=== PATIENT | female | born 1980 | race African-American/Black ===

== ENCOUNTER 2021-09-02 02:24 | Emergency (ER) | payer MEDICAID ==
[2021-09-02] MEDS ORDERED: Sodium Chloride 0.9% 1,000 ML IV SCH (02:30)
--- NOTE | 2021-09-02 02:35 | EDM.PDOC ---
ED HPI GENERAL MEDICAL PROBLEM - General Chief Complaint: Abdominal Pain Stated Complaint: puking, abdominal pain Time Seen by Provider: 09/02/21 02:25 Source of Information: Reports: Patient, EMS History Limitations: Reports: No Limitations - History of Present Illness INITIAL COMMENTS - FREE TEXT/NARRATIVE: Jaylene 10-year-old female from [place], [place] who presents to the ED via [facility] for evaluation of acute onset of severe abdominal pain, altered mental status, twitching, and vomiting. The patient was in her usual state of health until eating dinner tonight consisting of a pork product. She awoke about an hour prior to arrival with severe upper abdominal pain. EMS reported that she was altered but cannot really elaborate on how she was altered and that she was twitching intermittently. The patient was noted to be hypotensive and they established an IV and gave her a 750 cc bolus of normal saline and 8 of Zofran IV for nausea. She arrives here alert but slow to respond. She follows all commands. She has significant epigastric discomfort. abd pain Pain Score (Numeric/FACES): 6 - Related Data Allergies Allergy/AdvReac Type Severity Reaction Status Date / Time Penicillins Allergy Rash Verified 09/02/21 02:30 Home Meds: Home Meds NK [No Known Home Meds] 09/02/21 [History] ED ROS GENERAL - Review of Systems Review Of Systems: See Below Constitutional: Reports: Chills HEENT: Reports: No Symptoms Respiratory: Reports: No Symptoms Cardiovascular: Reports: No Symptoms Endocrine: Reports: No Symptoms GI/Abdominal: Reports: Abdominal Pain (Severe upper abdominal pain), Nausea, Vomiting : Reports: No Symptoms Musculoskeletal: Reports: No Symptoms Skin: Reports: No Symptoms Neurological: Reports: Confusion (Per EMS), Tremors (Intermittent twitching) Psychiatric: Reports: Anxiety Hematologic/Lymphatic: Reports: No Symptoms Immunologic: Reports: No Symptoms ED EXAM, GI/ABD - Physical Exam Exam: See Below Exam Limited By: No Limitations General Appearance: Alert, Anxious, Moderate Distress Eyes: Bilateral: EOMI Throat/Mouth: Normal Inspection, Normal Oropharynx, Normal Voice, No Airway Compromise Head: Atraumatic Neck: Normal Inspection, Supple Respiratory/Chest: No Respiratory Distress, Lungs Clear, Normal Breath Sounds Cardiovascular: Normal Peripheral Pulses, Regular Rate, Rhythm, No Murmur GI/Abdominal Exam: Guarding, Tender (Epigastric tenderness), Abnormal Bowel Sounds (Diminished bowel sounds). No: Rebound Back Exam: Normal Inspection, Full Range of Motion Extremities: Normal Inspection Neurological: Alert, Oriented, Normal Cognition, No Motor/Sensory Deficits, Other (Occasional myoclonic discharges causing her to twitch) Psychiatric: Anxious Skin Exam: Warm, Dry Lymphatic: No Adenopathy Course - Vital Signs Last Recorded V/S: Last Vital Signs Temp 38.2 C H 09/02/21 02:34 Pulse 101 H 09/02/21 02:34 Resp 14 09/02/21 02:34 BP 110/68 09/02/21 02:34 Pulse Ox 98 09/02/21 02:34 - Orders/Labs/Meds Orders: Active Orders 24 hr Category Date Time Status Sodium Chloride 0.9% [Normal Saline] 1,000 ml Med 09/02/21 02:30 Active IV ASDIRECTED Isolation [COMM] Stat Oth 09/02/21 02:26 Ordered Medication Orders Sodium Chloride (Normal Saline) 1,000 mls @ 500 mls/hr IV ASDIRECTED ASHWIN Last Admin: 09/02/21 03:01 Dose: 500 mls/hr Documented by: ADOLFO Labs: Laboratory Tests 09/02/21 09/02/21 09/02/21 Range/Units 02:31 02:35 02:35 WBC 6.4 (4.5-11.0) K/uL RBC 4.50 (3.30-5.50) M/uL Hgb 13.6 (12.0-15.0) g/dL Hct 39.8 (36.0-48.0) % MCV 88 (80-98) fL MCH 30 (27-31) pg MCHC 34 (32-36) % Plt Count 230 (150-400) K/uL Neut % (Auto) 86.6 H (36-66) % Lymph % (Auto) 4.9 L (24-44) % [place] % (Auto) 7.4 H (2-6) % Eos % (Auto) 0.5 L (2-4) % Baso % (Auto) 0.6 (0-1) % Sodium 138 L (140-148) mmol/L Potassium 3.9 (3.6-5.2) mmol/L Chloride 104 (100-108) mmol/L Carbon Dioxide 25 (21-32) mmol/L Anion Gap 12.9 (5.0-14.0) mmol/L BUN 9 (7-18) mg/dL Creatinine 0.9 (0.6-1.0) mg/dL Est Cr Clr Drug Dosing 76.26 mL/min Estimated GFR (MDRD) > 60 (>60) Glucose 98 (74-106) mg/dL Lactic Acid (0.4-2.0) mmol/L Calcium 8.2 L (8.5-10.1) mg/dL Total Bilirubin 0.4 (0.2-1.0) mg/dL AST 31 (15-37) U/L ALT 28 (12-78) U/L Alkaline Phosphatase 47 (46-116) U/L Total Protein 6.6 (6.4-8.2) g/dL Albumin 3.8 (3.4-5.0) g/dL Globulin 2.8 (2.3-3.5) g/dL Albumin/Globulin Ratio 1.4 (1.2-2.2) Lipase 60 L (73-393) U/L Urine Color (YELLOW) Urine Appearance (CLEAR) Urine pH (5.0-8.0) Ur Specific [place] (1.008-1.030) Urine Protein (NEGATIVE) mg/dL Urine Glucose (UA) (NEGATIVE) mg/dL Urine Ketones (NEGATIVE) mg/dL Urine Occult Blood (NEGATIVE) Urine Nitrite (NEGATIVE) Urine Bilirubin (NEGATIVE) Urine Urobilinogen (0.2-1.0) EU/dL Ur Leukocyte Esterase (NEGATIVE) Urine RBC (0-5) Urine WBC (0-5) Ur Epithelial Cells Amorphous Sediment Urine Bacteria Urine Mucus Urine Opiates Screen (NEGATIVE) Ur Oxycodone Screen (NEGATIVE) Urine Methadone Screen (NEGATIVE) Ur Propoxyphene Screen (NEGATIVE) Ur Barbiturates Screen (NEGATIVE) Ur Tricyclics Screen (NEGATIVE) Ur Phencyclidine Scrn (NEGATIVE) Ur Amphetamine Screen (NEGATIVE) U Methamphetamines Scrn (NEGATIVE) Urine MDMA Screen (NEGATIVE) U Benzodiazepines Scrn (NEGATIVE) U Cocaine Metab Screen (NEGATIVE) U Marijuana (THC) Screen (NEGATIVE) Ethyl Alcohol mg/dL Influenza Type A RNA Negative (NEGATIVE) RSV RNA (INAAT) Negative (NEGATIVE) Influenza Type B RNA Negative (NEGATIVE) SARS-CoV-2 RNA (CHERYL) Positive H (NEGATIVE) 12/26/21 12/26/21 12/26/21 Range/Units 02:35 02:35 03:38 WBC (4.5-11.0) K/uL RBC (3.30-5.50) M/uL Hgb (12.0-15.0) g/dL Hct (36.0-48.0) % MCV (80-98) fL MCH (27-31) pg MCHC (32-36) % Plt Count (150-400) K/uL Neut % (Auto) (36-66) % Lymph % (Auto) (24-44) % [place] % (Auto) (2-6) % Eos % (Auto) (2-4) % Baso % (Auto) (0-1) % Sodium (140-148) mmol/L Potassium (3.6-5.2) mmol/L Chloride (100-108) mmol/L Carbon Dioxide (21-32) mmol/L Anion Gap (5.0-14.0) mmol/L BUN (7-18) mg/dL Creatinine (0.6-1.0) mg/dL Est Cr Clr Drug Dosing mL/min Estimated GFR (MDRD) (>60) Glucose (74-106) mg/dL Lactic Acid 0.8 (0.4-2.0) mmol/L Calcium (8.5-10.1) mg/dL Total Bilirubin (0.2-1.0) mg/dL AST (15-37) U/L ALT (12-78) U/L Alkaline Phosphatase (46-116) U/L Total Protein (6.4-8.2) g/dL Albumin (3.4-5.0) g/dL Globulin (2.3-3.5) g/dL Albumin/Globulin Ratio (1.2-2.2) Lipase (73-393) U/L Urine Color Yellow (YELLOW) Urine Appearance Clear (CLEAR) Urine pH 8.5 H (5.0-8.0) Ur Specific [place] 1.020 (1.008-1.030) Urine Protein Negative (NEGATIVE) mg/dL Urine Glucose (UA) Negative (NEGATIVE) mg/dL Urine Ketones Negative (NEGATIVE) mg/dL Urine Occult Blood Moderate H (NEGATIVE) Urine Nitrite Negative (NEGATIVE) Urine Bilirubin Negative (NEGATIVE) Urine Urobilinogen 0.2 (0.2-1.0) EU/dL Ur Leukocyte Esterase Negative (NEGATIVE) Urine RBC 0-5 (0-5) Urine WBC 0-5 (0-5) Ur Epithelial Cells Rare Amorphous Sediment Not seen Urine Bacteria Few Urine Mucus Not seen Urine Opiates Screen (NEGATIVE) Ur Oxycodone Screen (NEGATIVE) Urine Methadone Screen (NEGATIVE) Ur Propoxyphene Screen (NEGATIVE) Ur Barbiturates Screen (NEGATIVE) Ur Tricyclics Screen (NEGATIVE) Ur Phencyclidine Scrn (NEGATIVE) Ur Amphetamine Screen (NEGATIVE) U Methamphetamines Scrn (NEGATIVE) Urine MDMA Screen (NEGATIVE) U Benzodiazepines Scrn (NEGATIVE) U Cocaine Metab Screen (NEGATIVE) U Marijuana (THC) Screen (NEGATIVE) Ethyl Alcohol < 3 mg/dL Influenza Type A RNA (NEGATIVE) RSV RNA (INAAT) (NEGATIVE) Influenza Type B RNA (NEGATIVE) SARS-CoV-2 RNA (CHERYL) (NEGATIVE) 09/02/21 Range/Units 03:38 WBC (4.5-11.0) K/uL RBC (3.30-5.50) M/uL Hgb (12.0-15.0) g/dL Hct (36.0-48.0) % MCV (80-98) fL MCH (27-31) pg MCHC (32-36) % Plt Count (150-400) K/uL Neut % (Auto) (36-66) % Lymph % (Auto) (24-44) % [place] % (Auto) (2-6) % Eos % (Auto) (2-4) % Baso % (Auto) (0-1) % Sodium (140-148) mmol/L Potassium (3.6-5.2) mmol/L Chloride (100-108) mmol/L Carbon Dioxide (21-32) mmol/L Anion Gap (5.0-14.0) mmol/L BUN (7-18) mg/dL Creatinine (0.6-1.0) mg/dL Est Cr Clr Drug Dosing mL/min Estimated GFR (MDRD) (>60) Glucose (74-106) mg/dL Lactic Acid (0.4-2.0) mmol/L Calcium (8.5-10.1) mg/dL Total Bilirubin (0.2-1.0) mg/dL AST (15-37) U/L ALT (12-78) U/L Alkaline Phosphatase (46-116) U/L Total Protein (6.4-8.2) g/dL Albumin (3.4-5.0) g/dL Globulin (2.3-3.5) g/dL Albumin/Globulin Ratio (1.2-2.2) Lipase (73-393) U/L Urine Color (YELLOW) Urine Appearance (CLEAR) Urine pH (5.0-8.0) Ur Specific [place] (1.008-1.030) Urine Protein (NEGATIVE) mg/dL Urine Glucose (UA) (NEGATIVE) mg/dL Urine Ketones (NEGATIVE) mg/dL Urine Occult Blood (NEGATIVE) Urine Nitrite (NEGATIVE) Urine Bilirubin (NEGATIVE) Urine Urobilinogen (0.2-1.0) EU/dL Ur Leukocyte Esterase (NEGATIVE) Urine RBC (0-5) Urine WBC (0-5) Ur Epithelial Cells Amorphous Sediment Urine Bacteria Urine Mucus Urine Opiates Screen Negative (NEGATIVE) Ur Oxycodone Screen Negative (NEGATIVE) Urine Methadone Screen Negative (NEGATIVE) Ur Propoxyphene Screen Negative (NEGATIVE) Ur Barbiturates Screen Negative (NEGATIVE) Ur Tricyclics Screen Negative (NEGATIVE) Ur Phencyclidine Scrn Negative (NEGATIVE) Ur Amphetamine Screen Negative (NEGATIVE) U Methamphetamines Scrn Negative (NEGATIVE) Urine MDMA Screen Negative (NEGATIVE) U Benzodiazepines Scrn Negative (NEGATIVE) U Cocaine Metab Screen Negative (NEGATIVE) U Marijuana (THC) Screen Negative (NEGATIVE) Ethyl Alcohol mg/dL Influenza Type A RNA (NEGATIVE) RSV RNA (INAAT) (NEGATIVE) Influenza Type B RNA (NEGATIVE) SARS-CoV-2 RNA (CHERYL) (NEGATIVE) Meds: Medications Generic Name Dose Route Start Last Admin Trade Name Freq PRN Reason Stop Dose Admin Sodium Chloride 1,000 mls @ 500 mls/hr 09/02/21 02:30 09/02/21 03:01 Normal Saline IV 500 mls/hr ASDIRECTED [facility] Administration - Re-Assessments/Exams Free Text/Narrative Re-Assessment/Exam: 09/02/21 03:23 I reviewed the labs showing a normal CBC with a leukocyte count of 6.4, hemoglobin of 13.6 and a platelet count of 230,000. Her comprehensive metabolic panel was also normal with a sodium 138, potassium 3.9, chloride of 104 with a bicarbonate of 25, BUN of nine with a creatinine of 0.9 and a glucose of 98. Calcium is slightly low at 8.2. The bilirubin, AST, ALT and alkaline phosphatase are all normal. Lipase is normal at 60. Ethanol is less than three. The patient is negative for influenza a and B, RSV but is positive for COVID-19. Patient is stating that her abdominal pain is now in the suprapubic region and she does have a history significant for recurrent urinary tract infections and pyelonephritis so we will check a urinalysis. 09/02/21 03:57 the urinalysis and urine drug screen. Both are negative. Despite the patient stating that she smoked some weed this weekend, her THC levels are undetectable making me believe that this was probably synthetic weed like K2 or spice. We discussed options for treating the Covid including monoclonal antibody but her presentation is more GI symptoms and this is less likely to be severe. We will put her on Zofran to help her with her nausea and allow her to remain hydrated. She should isolate for the next 10 to 14 days. She has been vaccinated by the [employer] vaccine receiving her last vaccination in May. At this time she is suitable for discharge home. Indications return to the ED were discussed. I did not offer the patient monoclonal antibody therapy because she will be back in [place] on Friday and therefore will not be in the area to receive the antibody treatment. He can however look at her local area hospital or clinic to receive the monoclonal antibody therapy. Departure - Departure Time of Disposition: 04:00 Disposition: Home, Self-Care 01 Clinical Impression: COVID-19, Lower abdominal pain Nausea and vomiting Qualifiers: Vomiting type: bilious vomiting Qualified Code(s): R11.14 - Bilious vomiting - Discharge Information Instructions: Nausea and Vomiting, Adult, [id number], 10 Things You Can Do to Manage Your COVID-19 Symptoms at Home - CDC (03/23/2021), COVID-19: How to Protect Yourself and Others - CDC Referrals: PCP,None [Primary Care Provider] - Forms: ED Department Discharge Care Plan Goals: Your blood counts and urinalysis were unremarkable for any significant findings including the urine drug screen that was negative for THC raising the question of what was the weed that you smoked. I suspect that it was likely synthetic which could cause some of the issues you are experiencing. Your work-up did discover that you are Covid positive and you should isolate for the next 10 to 14 days. I am including a prescription that can be filled this morning in the [employer] machine for Audra to keep your nausea under control. As [facility] are [facility], I would look into your local clinic for availability of monoclonal antibody therapy which may shorten the duration and severity of the COVID-19. I would contact her local doctor to discuss this. As your symptoms are most related to gastrointestinal illness, this is less likely to become serious then if it was lung related. Certainly if you start to develop increasing shortness of breath, cough or chest pain return to the emergency room for evaluation. Sepsis Event Note (ED) - Focused Exam Vital Signs: Vital Signs Temp Pulse Resp BP Pulse Ox 09/02/21 02:34 38.2 C H 101 H 14 110/68 98 09/02/21 02:32 38.2 C H 101 H 14 110/68 98 - Problem List & Annotations (1) COVID-19 SNOMED Code(s): 927513813 Code(s): U07.1 - COVID-19 Status: Acute Priority: High Current Visit: Yes (2) Lower abdominal pain SNOMED Code(s): 21670177 Code(s): R10.30 - LOWER ABDOMINAL PAIN, UNSPECIFIED Status: Acute Priority: High Current Visit: Yes (3) Nausea and vomiting SNOMED Code(s): 74618767 Code(s): R11.2 - NAUSEA WITH VOMITING, UNSPECIFIED Status: Acute Priority: High Current Visit: Yes Qualifiers: Vomiting type: bilious vomiting Qualified Code(s): R11.14 - Bilious vomiting - Problem List Review Problem List Initiated/Reviewed/Updated: Yes - My Orders Last 24 Hours: My Active Orders 09/02/21 02:26 Isolation [COMM] Stat 09/02/21 02:30 Sodium Chloride 0.9% [Normal Saline] 1,000 ml IV ASDIRECTED - Assessment/Plan Last 24 Hours: My Active Orders 09/02/21 02:26 Isolation [COMM] Stat 09/02/21 02:30 Sodium Chloride 0.9% [Normal Saline] 1,000 ml IV ASDIRECTED
[2021-09-02 03:20] LABS: CORONAVIRUS COVID-19 NAA POSITIVE (NEGATIVE)
== END 2021-09-02 04:30 | disposition home or self-care (01) ==
LOC: JP.ED 02:24
DX: U07.1 COVID-19 (principal); R11.14 Bilious vomiting; Z88.0 Allergy status to penicillin
CPT/HCPCS: 0241U; 36415; 80053; 80305; 80307; 81001; 83605; 83690; 85025; 99285; J7030